=== PATIENT | female | born 1960 | race Caucasian/White ===

== ENCOUNTER 2020-01-21 06:50 | Day surgery (SDC) | payer OTHER ==
[2020-01-20 11:52] LABS: HEMOGLOBIN 13.1 g/dL (12-16); MCH 33.4 pg (26.0-34.0); MCHC 32.8 g/dL (31.0-37.0); MEAN PLATELET VOLUME 9.9 fL (7.4-10.4); RBC 3.92 10x6/uL (4.00-5.40); RDW 17.6 % (11.5-14.5); WBC 6.2 10x3/uL (4.8-10.8)
[2020-01-20 12:16] LABS: APTT 32.7 SECONDS (22.8-39.4); INR 1.23 (0.85-1.17); PROTIME 15.4 SECONDS (11.6-15.0)
[~2020-01-21] VITALS: Ht 170.2 cm; Wt 70.3 kg
[~2020-01-21 06:50] MED LIST: ADVAIR HFA 230-12 GM INH; AUGMENTIN 875-11 TAB PO; COREG25 MG PO; FOLATE0.4 MG PO; METHOTREXATE2.5 MG PO; SPIRIVA18 MCG INH; TAMOXIFEN CITRA20 MG; WELLBUTRIN SR150 MG PO
[2020-01-21 08:48] VITALS: BP 137/79; Ht 170.2 cm; Wt 70.3 kg
--- NOTE | 2020-01-21 09:39 | HP ---
PATIENT: LYNDSAY JONES MEDICAL RECORD: [id number] ACCOUNT: [id number] LOCATION:[facility] : 60 ADMISSION DATE: 01/21/20 PCP: TOBY NUGENT MD HISTORY AND PHYSICAL EXAMINATION HISTORY OF PRESENT ILLNESS: Philippe is a 59-year-old female with chronic sinusitis. She has been chronic with facial pain and pressure, refractory to medication. She is being admitted for sinus surgery. PAST MEDICAL HISTORY: Includes diabetes, hypertension, reflux, and breast cancer. PAST SURGICAL HISTORY: Includes adult mastectomy in 2001 and shunt in 1997. MEDICATIONS: Amlodipine, carvedilol, TriCor, Patricia, gabapentin, gemfibrozil, Singulair, omeprazole, Zofran p.r.n., oxycodone p.r.n., and Spiriva. ALLERGIES: PNEUMOVAX. PHYSICAL EXAMINATION: GENERAL: A healthy-appearing, developmentally normal. FACE: Normal, symmetric, no lesions. EYES: Sclerae and conjunctivae are normal. EARS: Canals and TMs normal. NOSE: No mass, polyps, or drainage. ORAL CAVITY AND OROPHARYNX: Tongue protrudes in midline. Palate is normal. NECK: No masses, no adenopathy. CHEST: Clear. CARDIOVASCULAR: Regular rate and rhythm, no murmur. EXTREMITIES: Normal. DIAGNOSTIC DATA: CT opacification of the left maxillary, left ethmoid, left frontal sinus. IMPRESSION: Chronic mostly left-sided sinusitis, possibly allergic fungal sinusitis. PLAN: Left middle meatal antrostomy, left ethmoidectomy, left frontal sinusotomy, right sphenoidotomy, and cautery of the bilateral inferior turbinates. TRANSINT:[id number] Voice Confirmation ID: [id number] DOCUMENT ID: [id number] TOBY NUGENT MD at 0939 CC: [id number] DICTATION DATE: 01/20/2048 CHORAL TEACHER: 01/20/20922 [id number] [place] [address]
--- NOTE | 2020-01-24 11:41 | OP ---
PATIENT NAME: LYNDSAY JONES MEDICAL RECORD: [id number] :60 [facility] AD[facility] DATE: SURGEON: TOBY NUGENT MD DATE OF OPERATION: 01/21/2020 PREOPERATIVE DIAGNOSIS: 1. Chronic pansinusitis. 2. Nasal obstruction and turbinate hypertrophy. POSTOPERATIVE DIAGNOSES: 1. Chronic pansinusitis. 2. Nasal obstruction and turbinate hypertrophy. PROCEDURE: Left middle meatal antrostomy, left ethmoidectomy, left frontal sinusotomy, right sphenoidotomy, and cautery of bilateral inferior turbinates. COMPLICATIONS: None. SPECIMENS: Cultures from left maxillary and ethmoid sinuses. FINDINGS: Copious thick yellow purulence, the left maxillary and ethmoid sinuses. PACKING: None. BLOOD LOSS: Less than 10 cc. DISPOSITION: Recovery stable. PROCEDURE NOTE: She was brought to the operating room and placed in supine position, sedated and intubated by anesthesia. The table was turned 90 degrees. Head drape was applied. She was positioned for endoscopic nasal surgery. Using a headlight and nasal speculum, both sides of the nose were examined. The inferior turbinate, uncinate and middle turbinate were injected bilaterally with less than 1.5 cc of 1% lidocaine with 1:100,000 epinephrine. Three Afrin pledgets were placed in each side of the nose, left side was addressed first. All Afrin pledgets were removed. A 0-degree scope was used to examine the inferior nose. Septum and inferior turbinate were normal. The middle meatus uncinate was inflamed. The lateral nasal wall was bulging from the ethmoids posteriorly. Nasal cavity was normal. No masses, polyps or drainage. The uncinate was fractured anteriorly. Immediately, copious thick yellow green purulence was visualized. Microdebrider was used to take down that uncinate and a large curved olive tip suction was inserted in the maxillary sinus with a Luki trap and evacuated several cc of yellow purulence. Cultures were obtained from that. Then, the ethmoid cavity was entered inferiorly and medially and taken down from anterior to posterior with the microdebrider. This exposed the frontal sinuses. There was really no bleeding. A thin curved olive tip suction was then easily inserted into the frontal sinus, was irrigated and suctioned with saline. The maxillary sinus was irrigated and suctioned with saline and visualized with 30 to 70-degree scope and was cleaned and just erythematous mucosa, but not too much edema. Then, the right side was addressed. All the Afrin pledgets were removed with straight scope to the outfracture of the inferior turbinate and straight back to the sphenoid ostia, it was clearly visible and looked slightly open, but there was some thick drainage around it. A 2 mm Kerrison punch was inserted and took a couple of bites inferiorly and OPERATIVE REPORT [id number] LYNDSAY JONES inferomedially and then was able to get a #9 suction in there easily, suctioned it out, irrigated repeatedly with saline. Again, there was mucosal edema, pillar edema filling the sinus, but it was completely irrigated out. Then, both inferior turbinates, suction cautery was used to shrink down polypoid kind of changes to the turbinates shrinking down both outfractured with a Council elevator. Then, saline was used to irrigate the left maxillary and left ethmoid again repeatedly until everything was clean. The nasopharynx was suctioned. Some mupirocin was placed in the right sphenoid, left maxillary sinus and then she was awakened, extubated, and transported to recovery in good condition. No complications. TRANSINT:[id number] Voice Confirmation ID: [id number] DOCUMENT ID: [id number] TOBY NUGENT MD at 1141 CC: [id number] DICTATION DATE: 01/21/20 120 MATERIAL ATTENDANT: 01/21/202119 [facility] 01/21/20 [id number] [place] [address]
== END 2020-01-21 14:30 | disposition home or self-care (01) ==
LOC: D.OPS 06:50
PROVIDERS: Anesthesiology; ATTEND Otolaryngology
DX: J32.4 Chronic pansinusitis (principal); J34.89 Other specified disorders of nose and nasal sinuses; J34.3 Hypertrophy of nasal turbinates; E11.9 Type 2 diabetes mellitus without complications; I10 Essential (primary) hypertension; K21.9 Gastro-esophageal reflux disease without esophagitis; Z85.3 Personal history of malignant neoplasm of breast